=== PATIENT | male | born 1990 | race Caucasian/White ===

== ENCOUNTER 2021-11-25 05:05 | Emergency (ER) | payer OTHER ==
[2021-11-25 07:20] LABS: HEMOGLOBIN 15.1 gm/dl (14.0-17.5); RED BLOOD COUNT 5.15 M/UL (4.20-5.50); WHITE BLOOD COUNT 7.5 K/UL (4.5-11.0)
[2021-11-25 07:37] LABS: BUN/CREATININE RATIO 12 (0-10)
[2021-11-25] MEDS ORDERED: CITRATE OF MAG296 ML PO (11:43)
== END 2021-11-25 12:01 | disposition home or self-care (01) ==
LOC: ER1 05:05
PROVIDERS: Emergency Medicine
DX: U07.1 COVID-19 (principal); K59.00 Constipation, unspecified
CPT/HCPCS: 0240U; 80053; 81001; 83690; 85025; 96374; 96375; 99284; J1885; J2405; Q9967